=== PATIENT | male | born 1995 | race Two or more races ===

== ENCOUNTER 2017-11-25 10:59 | Emergency (ER) | payer OTHER ==
[~2017-11-25] VITALS: Ht 175.3 cm; Wt 81.7 kg
[2017-11-25] MEDS ORDERED: HYDR1TAB94 PO (15:33)
== END 2017-11-25 15:50 | disposition home or self-care (01) ==
LOC: ER 10:59
DX: S43.015A Anterior dislocation of left humerus, initial encounter (principal); X58.XXXA Exposure to other specified factors, initial encounter
CPT/HCPCS: 23650; 73020; 73030; 99152; 99284; J7030